=== PATIENT | male | born 1975 | race Caucasian/White ===

== ENCOUNTER 2016-03-03 04:27 | Emergency (ER) ==
[2016-03-03] MEDS ORDERED: TORADOL IV ONE (04:46)
[2016-03-03] MEDS ORDERED: ROCEPHIN 2 GM/NS 50 ML IV ONE (04:46)
[2016-03-03] MEDS ORDERED: TYLENOL PO ONE (04:47)
[2016-03-03] MEDS ORDERED: ZOFRAN IV ONE (04:47)
[2016-03-03] MEDS ORDERED: MORPHINE IV ONE (04:47)
[2016-03-03] MEDS ORDERED: NS ONE (04:51)
[2016-03-03] MEDS ORDERED: ROCEPHIN ONE (04:51)
--- NOTE | 2016-03-03 04:52 | PROVIDER DOCUMENTATION ---
HPI-Rash/Wound/ReCheck - General Chief Complaint: Fever Stated Complaint: POSS GIANNA/FEVER Time Seen by Provider: 03/03/16 04:41 Source: patient, family (mother) Allergies/Adverse Reactions: Allergies Allergy/AdvReac Type Severity Reaction Status Date / Time Penicillins Allergy Unknown Unknown Verified 11/16/15 14:16 - History of Present Illness-Dermatology Nature of Presenting Problem: pt states he noticed some redness and swelling involving his right pinku finger for the last 2-3 days. Yesterday he cut the area with a knife which made it bleed but no purulence was seen. Then tonight he developed fever and a red streak going up his wrist. Review of Systems - Adult - REVIEW OF SYSTEMS - ADULT Constitutional: reports: chills, fever Eyes: denies: discharge Ears, Nose, Mouth & Throat: reports: ear pain (chronic since he had his jaw fracture fixed last October) Cardiovascular: denies: chest pain Respiratory: denies: cough, shortness of breath Gastrointestinal: denies: abdominal pain, diarrhea, nausea, vomiting Integumentary: reports: see HPI Neurological: denies: headache/migraines, numbness, paresthesia All Other Systems: Reviewed and Negative Past History - Adult - PAST MEDICAL HISTORY-ADULT Review of Records: reports: Old Records Reviewed, Nursing Assessment Review, Medications Reviewed, Social history reviewed & non-contributory. Physical Exam-General - PHYSICAL EXAM-ADULT Initial Vital Signs Reviewed: Yes - CONSTITUTIONAL General Appearance: appears well, alert, anxious - EYES Eyes: pink conjunctivae. negative: scleral icterus - HEAD, EARS, NOSE, MOUTH & THROAT HENMT: normocephalic/atraumatic, TMs normal - MUSCULOSKELETAL Extremity: other (right pinky finger with moderate swelling and diffuse erythema without purulence with ascending redness on the dorsal side going up to his distal forearm. 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, grossly normal, no motor/sensory deficits - PSYCHIATRIC Psych/Mental Status: normal thought content, normal thought process, oriented x 3, anxious Progress - PLAN OF CARE/RESULTS Progress/Plan/Lab Results: Orders Category Date Time Status Acetaminophen [Tylenol] Med 03/03/16 04:47 Discontinued 1,000 mg PO NOW ONE CefTRIAXONE 1 GM/NS [Rocephin 1 gm/Ns] 100 ml Med 03/03/16 04:51 Discontinued .ROUTE As Directed CefTRIAXONE 2 GM/NS [Rocephin 2 gm/Ns] 50 ml Med 03/03/16 04:46 Active IV NOW Ketorolac [Toradol] Med 03/03/16 04:46 Discontinued 30 mg IV NOW ONE Morphine Med 03/03/16 04:47 Discontinued 4 mg IV NOW ONE Ondansetron [Zofran] Med 03/03/16 04:47 Discontinued 4 mg IV NOW ONE Vital Signs Temp Pulse Resp BP Pulse Ox 03/03/16 04:39 102.0 F H 140 H 20 139/78 100 03/03/16 04:32 142 H 20 114/73 96 Penicillins Allergy (Unknown, Verified 11/16/15 14:16) Unknown No Home Medications 11/16/15 Departure - Departure Time of Disposition Order: 05:15 DIAGNOSIS: Cellulitis Qualifiers: Site of cellulitis: extremity Site of cellulitis of extremity: upper extremity Laterality: right Qualified Code(s): L03.113 - Cellulitis of right upper limb Disposition: HOME 01 Certified Medical Emergency: Emergent Condition: Fair Additional Instructions: place warm moist heat on infected area. Come back in 2 days if not improving, sooner if worse. May take 4 over the counter ibuprofen every 6-8 hours w/food as needed for pain or fever ED Follow Up Instructions: You have been treated by a care provider in the Emergency Department. These instructions are being provided to you so you can have an understanding of how to care for yourself upon discharge. Upon discharge from the Emergency Department, you are responsible for making arrangements for follow-up care by a physician of your choice. Take all prescribed medications as directed. Return to the Emergency Department immediately for any new or worsening symptoms. You may call the Physician Referral phone number at [phone] to obtain a list of Physicians who are taking new patients. Prescriptions: Cephalexin [Keflex] 500 mg PO Q6HR #30 capsule Sulfamethoxazole/Tmp D.s. [Septra Ds] 1 each PO BID #14 tablet
[2016-03-03 06:27] VITALS: BP 114/71
== END 2016-03-03 06:28 | disposition home or self-care (01) ==
LOC: P.ED 04:27
DX: L03.113 Cellulitis of right upper limb (principal); R50.9 Fever, unspecified; L53.9 Erythematous condition, unspecified; M79.89 Other specified soft tissue disorders; H92.09 Otalgia, unspecified ear
CPT/HCPCS: 96365; 96375; J0696; J1885; J2270; J2405

== ENCOUNTER 2016-03-06 15:16 | Emergency (ER) ==
[2016-03-06 15:28] VITALS: BP 122/73
[2016-03-06] MEDS ORDERED: CLINDAMYCIN 600 MG/NS 50 ML IV ONE (15:40)
[2016-03-06] MEDS ORDERED: SOLU-MEDROL IV ONE (15:43)
[2016-03-06 16:04] LABS: MANUAL DIFF NEEDED? NO
--- NOTE | 2016-03-06 16:11 | PROVIDER DOCUMENTATION ---
HPI-Rash/Wound/ReCheck - General Source: patient - History of Present Illness-Dermatology Location: reports: upper extremity (right handd) Quality: reports: painful Severity: reports: moderate Onset/Duration: reports: abrupt, 4 days ago, 5 days ago Locality of Occurance: Home Similar Symptoms Previously?: Yes Recently seen or treated by another doctor?: Yes - Recheck Treated days ago.: 2 Previous Treatment: other Antibiotics given: prescription Symptoms since procedure:: reports: pain, redness <Timmy Brock - Last Filed: 03/06/16 16:13> <Roxana Philip - Last Filed: 03/06/16 17:02> - General Chief Complaint: Return/Recheck Stated Complaint: RETURN/RECHECK Time Seen by Provider: 03/06/16 15:35 Allergies/Adverse Reactions: Allergies Allergy/AdvReac Type Severity Reaction Status Date / Time Penicillins Allergy Unknown Unknown Verified 11/16/15 14:16 - History of Present Illness-Dermatology Nature of Presenting Problem: patient is a 40 y/o m that presents for recheck after being seen in the ER 2 days ago and dx with cellulitis of right hand. He was prescribed Bactrim. Since then, he has increased redness, swelling, and streaking to arm. denies fever/ chills or shortness of breath. (Timmy Brock) Review of Systems - Adult - REVIEW OF SYSTEMS - ADULT Constitutional: denies: chills, fever Eyes: reports: no symptoms reported Ears, Nose, Mouth & Throat: reports: no symptoms reported Cardiovascular: denies: chest pain, palpitations Respiratory: denies: shortness of breath, wheezing Gastrointestinal: denies: abdominal pain, nausea, vomiting Genitourinary: reports: no symptoms reported Musculoskeletal: reports: see HPI Integumentary: reports: see HPI Neurological: reports: no symptoms reported Psychiatric: reports: no symptoms reported Endocrine: reports: no symptoms reported Hematologic/Lymphatic: reports: no symptoms reported Allergic/Immunologic: reports: no symptoms reported All Other Systems: Reviewed and Negative <Timmy Brock - Last Filed: 03/06/16 16:13> Past History - Adult - PAST MEDICAL HISTORY-ADULT Review of Records: reports: Old Records Reviewed, Nursing Assessment Review, Medications Reviewed - PRIOR SURGERIES/PROCEDURES Surgical/Procedure History: reports: tonsillectomy - IMMUNIZATION STATUS Childhood Immunizations: See Nurse Assessment Flu Vaccine: See Nurse Assessment - FAMILY HISTORY Family History: reviewed, not pertinent - SOCIAL HISTORY Smoking: cigarettes, less than 1 pack/day Substance Use: marijuana, amphetamines Living Situation: family <Timmy Brock - Last Filed: 03/06/16 16:13> Physical Exam-General - PHYSICAL EXAM-ADULT Initial Vital Signs Reviewed: Yes - CONSTITUTIONAL General Appearance: alert, no apparent distress - EYES Eyes: PERRL/EOMI, pink conjunctivae - HEAD, EARS, NOSE, MOUTH & THROAT HENMT: normocephalic/atraumatic, moist mucous membranes, normal ENT inspection - NECK Neck: non-tender, full range of motion, normal inspection - RESPIRATORY Respiratory: lungs clear, normal breath sounds, no respiratory distress, no accessory muscle use - CARDIOVASCULAR Cardiovascular: no gallop, no JVD, tachycardia - GASTROINTESTINAL (ABDOMEN) Abdominal Exam: normal bowel sounds, non tender, soft - LYMPHATIC Lymphatic: axilla node tender (right arm with swelling). negative: inguinal node tender - MUSCULOSKELETAL Extremity: no calf tenderness, normal capillary refill, pelvis stable - SKIN Integumentary: warm/dry, erythema (right hand with streaking), tenderness ( right hand), warm (right hand) - NEUROLOGIC Neurologic: grossly normal, no motor/sensory deficits - PSYCHIATRIC Psych/Mental Status: normal mood/affect, normal thought content, normal thought process, oriented x 3 <Timmy Brock - Last Filed: 03/06/16 16:13> Progress <Timmy Brock - Last Filed: 03/06/16 16:13> <Roxana Philip - Last Filed: 03/06/16 17:02> - PLAN OF CARE/RESULTS Progress/Plan/Lab Results: Dr. Cruz to bedside, agrees with treatment, disposition and plan. Vital Signs Temp Pulse Resp BP Pulse Ox 03/06/16 15:20 98.5 F 117 H 20 122/73 98 Penicillins Allergy (Unknown, Verified 11/16/15 14:16) Unknown Cephalexin [Keflex] 500 mg PO Q6HR #30 capsule 03/03/16 Sulfamethoxazole/Tmp D.s. [Septra Ds] 1 each PO BID #14 tablet 03/03/16 Laboratory 03/06/16 03/06/16 15:54 15:54 WBC 9.05 RBC 4.85 Hgb 14.8 Hct 45.3 MCV 93.4 MCH 30.5 MCHC 32.7 L RDW Std Deviation 12.6 Plt Count 407 H MPV 10.3 Immature Gran % (Auto) 0.1 Neut % (Auto) 74.3 Lymph % (Auto) 12.7 L [place] % (Auto) 8.1 Eos % (Auto) 4.1 Baso % (Auto) 0.7 Immature Gran # (Auto) 0.01 Neut # (Auto) 6.73 H Lymph # (Auto) 1.15 L [place] # (Auto) 0.73 H Eos # (Auto) 0.37 Baso # (Auto) 0.06 Sodium 138 Potassium 4.2 Chloride 100 Carbon Dioxide 28 Anion Gap 9 BUN 15 Creatinine 1.0 Estimated GFR/1.73 m2 > 60 BUN/Creatinine Ratio 15 Glucose 101 Calculated Osmolality 277 Calcium 9.8 Total Bilirubin 0.20 AST 25 ALT 29 Alkaline Phosphatase 103 Total Protein 7.8 Albumin 3.8 Globulin 4.0 Albumin/Globulin Ratio 1.0 Orders Category Date Time Status Saline Loc NOW Care 03/06/16 15:40 Active BLOOD CULTURE [BLDCUL] Stat Lab 03/06/16 15:41 Ordered CBC WITH ELECTRONIC DIFF [HEME] Stat Lab 03/06/16 15:54 Completed CMP [COMPREHENSIVE METABOLIC PANEL] [CHEM] Stat Lab 03/06/16 15:54 Completed Clindamycin 600 mg/Ns 50 ml Med 03/06/16 15:40 Discontinued IV NOW Methylprednisolone Sod Succ [Solu-Medrol] Med 03/06/16 15:43 Discontinued 80 mg IV NOW ONE (Roxana Philip) Departure <Timmy Brock - Last Filed: 03/06/16 16:13> - Departure Time of Disposition Order: 17:02 Certified Medical Emergency: Emergent <Roxana Philip - Last Filed: 03/06/16 17:02> - Departure DIAGNOSIS: Cellulitis Disposition: HOME 01 Condition: Stable Additional Instructions: ED Follow Up Instructions: You have been treated by a care provider in the Emergency Department. These instructions are being provided to you so you can have an understanding of how to care for yourself upon discharge. Upon discharge from the Emergency Department, you are responsible for making arrangements for follow-up care by a physician of your choice. Take all prescribed medications as directed. Return to the Emergency Department immediately for any new or worsening symptoms. You may call the Physician Referral phone number at [phone] to obtain a list of Physicians who are taking new patients. Prescriptions: Clindamycin [Cleocin] 150 mg PO Q6HR #30 capsule Prednisone [Deltasone] 20 mg PO DIRECTED #12 tablet Attestation - Scribe Verification/Attestation Scribe:: Timmy Brock Acting as Scribe for:: Roxana Philip Scribe documention review:: This chart was documented by a scribe and accurately reflects the service the provider performed and the decisions made by the provider. - Physician/ Mid-level Attestation Patient care was provided by Mid-level provider (ENERGY CONSERVATION REPRESENTATIVE/PA):: Yes Mid-level provider:: Roxana Philip Mid-level documentation review:: The Mid-level provider documentation, treatment plan and medical decision making was reviewed by the physician who agrees with all treatment and medical decision making by the MLP. <Timmy Brock - Last Filed: 03/06/16 16:13> Physician Attestation
[2016-03-06 16:19] LABS: BASO% 0.7 % (0.0-0.8); EOS# 0.37 X1000 (0.0-0.7); EOS% 4.1 % (0.0-10.0); HEMATOCRIT 45.3 % (42.0-52.0); HEMOGLOBIN 14.8 g/dL (14.0-18.0); IMM GRAN# 0.01 X1000 (0.0-0.04); IMM GRAN% 0.1 % (0.0-0.5); LYMPH# 1.15 X1000 (1.2-3.4); LYMPH% 12.7 % (20.5-51.1); MCH 30.5 PG (27-31); MCHC 32.7 g/dL (33-37); MCV 93.4 FL (81-99); MONO# 0.73 X1000 (0.11-0.59); MONO% 8.1 % (1.7-9.3); MPV 10.3 FL (7.4-10.4); NEUT% 74.3 % (42.2-75.2); PLT 407 X1000 (130-400); RBC 4.85 XMIL (4.7-6.1)
[2016-03-06 16:30] LABS: AGAP 9; ALBUMIN 3.8 g/dL (3.5-5.0); ALKALINE PHOSPHATASE 103 U/L (32-122); BUN 15 mg/dL (8-22); CALCIUM 9.8 mg/dL (8.8-10.2); CHLORIDE 100 mmol/L (98-107); COSMO 277; GOT 25 U/L (10-34); GPT 29 U/L (10-44); POTASSIUM 4.2 mmol/L (3.5-5.1); SODIUM 138 mmol/L (136-145); TCO2 28 mmol/L (25-35); TOTAL PROTEIN 7.8 g/dL (6.3-8.3)
== END 2016-03-06 17:17 | disposition home or self-care (01) ==
LOC: P.ED 15:16
DX: L03.113 Cellulitis of right upper limb (principal); R00.0 Tachycardia, unspecified; M79.89 Other specified soft tissue disorders; M79.641 Pain in right hand; F17.210 Nicotine dependence, cigarettes, uncomplicated
CPT/HCPCS: 36415; 80053; 85025; 87040; 96365; 96375; J2930; S0077